=== PATIENT | male | born 1965 | race Caucasian/White ===

== ENCOUNTER 2019-03-27 13:14 | Emergency (ER) | payer BC ==
[~2019-03-27] VITALS: Ht 180.3 cm; Wt 97.5 kg
[~2019-03-27 13:14] MED LIST: ADULT LOW DOSE81 MG PO; ALLOPURINOL 10100 M1 PO; FLEXERIL PO; INDOMETHACIN 5050 MG PO; LEXAPRO 10 MG T10 M2 PO; LIPITOR10 MG PO; NITROGLYCERIN0.4 MG SUBLING; PERCOCET 5-3251 EACH PO; UNICOMPLEX M TA1 TA1 PO; XANAX 0.5 MG0.5 MG PO
[2019-03-27 13:53] LABS: URINE BILIRUBIN NEGATIVE (Negative); URINE BLOOD NEGATIVE (Negative); URINE CLARITY CLEAR; URINE COLOR YELLOW; URINE GLUCOSE-RANDOM NEGATIVE (Negative); URINE KETONES NEGATIVE (Negative); URINE LEUKOCYTES-REFLEX NEGATIVE (Negative); URINE NITRITE-REFLEX NEGATIVE (Negative); URINE PROTEIN NEGATIVE (Negative); URINE UROBILINOGEN 0.2 E.U./dl (0.2-1.0)
[2019-03-27] MEDS ORDERED: METOPROLOL TART25 MG PO (13:59)
[2019-03-27] MEDS ORDERED: LISINOPRIL-HCT1 EAC1 PO (13:59)
[2019-03-27 14:07] LABS: ABSOLUTE BASOPHILS 0.1 thou/uL (0.0-0.2); ABSOLUTE EOSINOPHILS 0.2 thou/uL (0.0-0.7); ABSOLUTE LYMPHOCYTES 1.7 thou/uL (0.8-5.3); ABSOLUTE MONOCYTES 0.6 thou/uL (0.0-1.2); ABSOLUTE NEUTROPHILS 8.5 thou/uL (1.6-8.1); BASOPHILS 0.9 %; EOSINOPHILS 2.1 %; HEMATOCRIT 38.3 % (42.0-52.0); HEMOGLOBIN 13.6 gm/dL (14.0-18.0); LYMPHOCYTES 15.5 %; MCH 32.7 pg (26.0-34.0); MCHC 35.4 g/dL (28.0-37.0); MCV 92.3 fL (80.0-100.0); MONOCYTES 5.4 %; NUCLEATED RBCS 0 /100WBC; PLATELET COUNT* 218 thou/uL (150-400); POLYS 76.1 %; RBC 4.15 mil/uL (4.50-6.00); RDW-CV 14.1 % (10.5-14.5); WBC 11.2 thou/uL (4.0-11.0)
[2019-03-27 14:16] LABS: CALCIUM 9.3 mg/dL (8.5-10.1); POTASSIUM 3.9 mmol/L (3.5-5.1)
[2019-03-27 14:18] LABS: METHADONE Negative (Negative)
[2019-03-27 14:19] LABS: SALICYLATE < 2.8 mg/dL (2.8-20.0)
[2019-03-27 14:20] LABS: ACETAMINOPHEN < 2 ug/mL (10-30)
[2019-03-27 14:20] LABS: AMP/METHAMP Negative (Negative); BARBITURATES Negative (Negative); BENZODIAZEPINES POSITIVE (Negative); COCAINE Negative (Negative); OPIATES Negative (Negative); PCP Negative (Negative); THC Negative (Negative)
[2019-03-27 14:21] LABS: ALBUMIN 4.4 g/dL (3.4-5.0); ALCOHOL < 10 mg/dL (<10); TOTAL BILIRUBIN 0.8 mg/dL (<0.1-1.0); TOTAL PROTEIN 8.7 g/dL (6.4-8.2)
[2019-03-27] MEDS ORDERED: ATIVAN1 M1 PO (17:41)
[2019-03-27 18:00] VITALS: BP 148/88
== END 2019-03-27 18:02 | disposition home or self-care (01) ==
LOC: M.ERS 13:14
PROVIDERS: Family Medicine
DX: F32.9 Major depressive disorder, single episode, unspecified (principal); F10.10 Alcohol abuse, uncomplicated; F41.9 Anxiety disorder, unspecified; I10 Essential (primary) hypertension; M10.9 Gout, unspecified; Z98.890 Other specified postprocedural states

== ENCOUNTER 2020-01-30 17:15 | Observation (INO) | payer OTHER ==
[~2020-01-30] VITALS: Ht 180.3 cm; Wt 62.8 kg
[~2020-01-30 17:15] MED LIST changes: +ATIVAN1 M1 PO; +LISINOPRIL-HCT1 EAC1 PO; +METOPROLOL TART25 MG PO
[2020-01-30] MEDS ORDERED: FENOFIBRATE150 MG PO (17:29)
[2020-01-30 18:03] LABS: ABSOLUTE BASOPHILS 0.1 thou/uL (0.0-0.2); ABSOLUTE EOSINOPHILS 0.3 thou/uL (0.0-0.7); ABSOLUTE MONOCYTES 0.4 thou/uL (0.0-1.2); ABSOLUTE NEUTROPHILS 4.6 thou/uL (1.6-8.1); BASOPHILS 0.9 %; EOSINOPHILS 3.7 %; HEMATOCRIT 36.5 % (42.0-52.0); HEMOGLOBIN 12.6 gm/dL (14.0-18.0); LYMPHOCYTES 27.1 %; MCH 32.7 pg (26.0-34.0); MCHC 34.5 g/dL (28.0-37.0); MCV 94.6 fL (80.0-100.0); NUCLEATED RBCS 0 /100WBC; PLATELET COUNT* 198 thou/uL (150-400); POLYS 62.3 %; RBC 3.86 mil/uL (4.50-6.00); RDW-CV 13.2 % (10.5-14.5); WBC 7.4 thou/uL (4.0-11.0)
[2020-01-30 18:15] LABS: CALCIUM 8.6 mg/dL (8.5-10.1); CREATININE 1.3 mg/dL (0.6-1.3); POTASSIUM 3.1 mmol/L (3.5-5.1)
[2020-01-30 18:18] LABS: APTT 24.5 Seconds (25.0-31.3); PROTIME 10.3 Seconds (9.20-11.50)
[2020-01-30 18:26] LABS: ALBUMIN 3.7 g/dL (3.4-5.0); MAGNESIUM 2.1 mg/dL (1.8-2.4); TOTAL BILIRUBIN 0.5 mg/dL (<0.1-1.0); TOTAL PROTEIN 7.2 g/dL (6.4-8.2)
--- NOTE | 2020-01-30 20:44 | NUR ---
REPORT CALLED TO NAM BYRD. WILL PREPARE TO TRANSPORT PT.
[2020-01-30 20:45] VITALS: BP 112/76
[2020-01-30 21:34] VITALS: BP 140/76
[2020-01-31 00:09] VITALS: BP 140/73
[2020-01-31 04:48] VITALS: BP 147/81
--- NOTE | 2020-01-31 05:10 | NUR ---
PT RECIEVED FORM ED IN 208. SAT MAINTAINED IN O2. ALERT AND ORIENTED X4. DENIES PAIN. CALL LIGHT WITHIN REACH AND BED IN LOW POSITION. HOURLY ROUNDING DONE FOR PT SAFETY.
[2020-01-31 08:00] VITALS: BP 131/76
--- NOTE | 2020-01-31 10:19 | EKG ---
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[place] [facility] [place] 1965 Requested By: David Barba Order Number: [id number] MD: Fernando Eisenberg Measurements Intervals [place] Rate: 78 P: 51 AR: 156 QRS: 25 QRSD: 99 T: 34 QT: 399 QTc: 455 Interpretive Statements Sinus rhythm Probable left atrial enlargement Borderline T abnormalities, anterior leads Artifact in lead(s) V1 and baseline wander in lead(s) V1,V3,V5 Compared to ECG 09/12/2018 11:59:33 no change Electronically Signed On 01-31-2020 10:19:42 IT SOLUTIONS ARCHITECT by Fernando Eisenberg [email or web address] <ELECTRONICALLY SIGNED> By: Fernando Eisenberg MD, FACC 01/31/20 1019 1725 1725 Fernando Eisenberg MD, FACC /EPI
[2020-01-31 11:41] VITALS: BP 138/79
--- NOTE | 2020-01-31 12:13 | CON ---
[facility] [address] [place] [address] CONSULTATION Name: KAYLILENI Kassy Room: [address] Liza Matta#: [id number] Admission: 01/30/20 Attend Phys: Marya Welsh Discharge: Date of : 67 Report #: [id number] THIS REPORT FOR: cc: Haroldo Chauhan Mohammad K. DO ~ Fernando Eisenberg MD [facility] DATE OF SERVICE: 01/31/2020 CARDIOLOGY CONSULTATION HISTORY OF PRESENT ILLNESS: The patient is a 54-year-old single white male who I was asked to see in the hospital today after he complained of chest pain. Unfortunately, the patient has never been admitted to [facility] before. There are no old records available. However, the patient states he has had chest pain for a long time. He actually underwent a cardiac catheterization in [facility] in the summer of 2018 for chest pain from the right radial artery. Apparently, there was no significant stenosis and no stents were placed. He has been treated medically since that time. He was doing well until 2 nights ago, he was at home, lying in bed when he felt a sharp pain in his chest, became diaphoretic. Took a nitroglycerin that seemed to help. Two nights ago, he also was lying in bed, felt a sharp pain in his chest, went into his back. He took a nitroglycerin to help. Yesterday, he decided to drive himself to [facility] and admitted for further evaluation and treatment. He has had no further chest pain since that time. He denied the pain being related to activity. He has had no trauma to his chest. He has had no rash. He denied it being related to food. He had no belching. He has had no bleeding recently. Denied fever or cough. He does get short of breath when he exerts himself, but he has had no edema. He notes occasional irregular heartbeat, but no syncope. PAST MEDICAL HISTORY: Otherwise, he has had previous lipoma removed from his leg. He has had elbow surgery, hypertension, and hyperlipidemia. MEDICATIONS: On admission included allopurinol, Lipitor, Lexapro, Xanax, metoprolol, fenofibrate. He previously was on lisinopril HCT. ALLERGIES: He has no known drug allergies. He does take an aspirin a day. FAMILY HISTORY: His father of heart attack. 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 He quit smoking in 2011. He has a history of alcohol abuse, previously went to detox. He continues to drink 4-6 drinks a day, usually beer. He has had no history of seizures, hepatitis, GI bleeding. He has passed out [address] [place] [address] CONSULTATION Name: LENI MILAN Room: [address] Liza Matta#: [id number] Admission: 01/30/20 Attend Phys: Marya Welsh Discharge: Date of : 67 Report #: [id number] from drinking in the past. REVIEW OF SYSTEMS: No history of stroke, asthma, liver disease, kidney disease or cancer. He has a history of anxiety. He follows a psychiatrist. No chronic skin condition. No cancer. PHYSICAL EXAMINATION: GENERAL: Revealed a middle-aged male, who appeared in no distress. VITAL SIGNS: He had a blood pressure 110/60, pulse is 70, he was afebrile. HEENT: He was anicteric. Conjunctivae are pink. Mucous membranes are moist. NECK: Veins nondistended. No carotid bruits. Neck supple. CHEST: Clear to auscultation. CARDIOVASCULAR: Regular rate without murmur. ABDOMEN: Soft. EXTREMITIES: Had no edema. Posterior tibial pulse 3+ bilaterally. SKIN: Cool and dry. NEUROLOGIC: Nonfocal. LYMPH: No adenopathy. MUSCULOSKELETAL: No joint effusion. RADIOLOGICAL DATA: ECG shows a sinus rhythm with nonspecific T-wave changes. His workup in the Emergency Room last night, he had a portable chest x-ray that showed normal heart size and clear lung nichols. LABORATORY DATA: Sodium 137, creatinine 1.3, glucose was 189. Lipase 221. Alkaline phosphatase 205. SGPT 168. His troponins all 0.06. His urine drug screen positive for benzodiazepines. White blood cell count 7.4, hemoglobin 12.6. IMPRESSION AND RECOMMENDATIONS: 1. Chest pain. No evidence of acute coronary syndrome. I think it is reasonable at this time to discharge the patient and have him follow up in [place] where he was catheterized a year and a half ago that showed no significant coronary artery disease. 2. Alcohol abuse. 3. Previous tobacco abuse. 4. Hypertension. The patient is on a beta artur. 5. Hyperlipidemia. The patient is on a statin drug. 6. History of anxiety disorder. The patient followed by Psychiatry. <ELECTRONICALLY SIGNED> By: Fernando Eisenberg MD, [facility] 01/31/20 1213 1036 1102Danika Eisenberg MD, FACC /nt
[2020-01-31 15:35] VITALS: BP 138/79
--- NOTE | 2020-01-31 18:16 | NUR ---
PT. AOX4, VSS, CALL LIGHT AND PERSONAL BELONGINGS PLACED WITHIN REACH, DENIES PAIN OR CHEST DISCOMFORT. OK WITH BLICK TO DC, SPOKE TO JOANA, PROVIDED WORK OFF LETTER TO PT. THIS NURSE ACCOMPANINED PT, WHO AMBULATED TO ER AND LEFT BY PERSONAL CAR, IN STABLE CONDITION.
== END 2020-01-31 16:30 | disposition home or self-care (01) ==
LOC: M.ERS 17:15 → M.2W 18:40 → M.TBA-ER 18:40 → M.2W 21:08
PROVIDERS: Emergency Medicine Emergency Medical Services; ADMIT Internal Medicine; ATTEND Internal Medicine
DX: R07.89 Other chest pain (principal); F41.9 Anxiety disorder, unspecified; F32.9 Major depressive disorder, single episode, unspecified; M10.9 Gout, unspecified; I10 Essential (primary) hypertension; F10.29 Alcohol dependence with unspecified alcohol-induced disorder; M94.0 Chondrocostal junction syndrome [Tietze]; J40 Bronchitis, not specified as acute or chronic; J43.9 Emphysema, unspecified; E78.5 Hyperlipidemia, unspecified; K76.0 Fatty (change of) liver, not elsewhere classified; Z87.891 Personal history of nicotine dependence; Z79.899 Other long term (current) drug therapy; Z20.828 Contact with and (suspected) exposure to other viral communicable diseases

== ENCOUNTER 2020-03-31 10:27 | Inpatient (IN) | payer OTHER ==
[2020-03-31] VITALS (8 sets, daily range): BP systolic 142–174; BP diastolic 83–94
[~2020-03-31] VITALS: Ht 180.3 cm; Wt 108.4 kg
[~2020-03-31 10:27] MED LIST changes: +FENOFIBRATE150 MG PO
[2020-03-31] MEDS ORDERED: METFORMIN HCL500 M3 PO (10:42)
[2020-03-31 10:52] LABS: ABSOLUTE BASOPHILS 0.1 thou/uL (0.0-0.2); ABSOLUTE LYMPHOCYTES 0.5 thou/uL (0.8-5.3); ABSOLUTE MONOCYTES 1.7 thou/uL (0.0-1.2); ABSOLUTE NEUTROPHILS 18.5 thou/uL (1.6-8.1); BASOPHILS 0.3 %; HEMATOCRIT 44.3 % (42.0-52.0); HEMOGLOBIN 14.6 gm/dL (14.0-18.0); LYMPHOCYTES 2.4 %; MCH 32.2 pg (26.0-34.0); MCV 97.6 fL (80.0-100.0); MONOCYTES 8.1 %; MPV 9.8 fl. (7.2-11.1); NUCLEATED RBCS 0 /100WBC; PLATELET COUNT* 271 thou/uL (150-400); POLYS 89.2 %; RBC 4.54 mil/uL (4.50-6.00); RDW-CV 13.2 % (10.5-14.5); WBC 20.8 thou/uL (4.0-11.0)
[2020-03-31 11:01] LABS: CALCIUM 9.5 mg/dL (8.5-10.1); CREATININE 2.5 mg/dL (0.6-1.3); POTASSIUM 4.4 mmol/L (3.5-5.1)
[2020-03-31 11:02] LABS: URINE BLOOD 3+ (Negative); URINE CLARITY CLEAR; URINE COLOR YELLOW; URINE GLUCOSE-RANDOM 2+ (Negative); URINE LEUKOCYTES NEGATIVE (Negative); URINE NITRITE NEGATIVE (Negative); URINE PROTEIN 2+ (Negative); URINE SPECIFIC GRAVITY 1.025 (1.005-1.030); URINE UROBILINOGEN 0.2 E.U./dl (0.2-1.0)
[2020-03-31 11:04] LABS: URINE BILIRUBIN 2+ (Negative); URINE KETONES 3+ (Negative)
[2020-03-31 11:05] LABS: ICTOTEST (BILI CONFIRMATORY) Negative (Negative)
[2020-03-31 11:09] LABS: ALBUMIN 2.9 g/dL (3.4-5.0); DIRECT BILIRUBIN 0.7 mg/dL (<0.1-0.3); MAGNESIUM 2.7 mg/dL (1.8-2.4); TOTAL BILIRUBIN 1.3 mg/dL (<0.1-1.0); TOTAL PROTEIN 7.6 g/dL (6.4-8.2)
[2020-03-31 11:15] LABS: BACTERIA 1-9 Few /HPF (None Seen); CASTS None Seen /LPF (None Seen); CRYSTALS None Seen /LPF (None Seen); MUCUS 0-3 Light strn/LPF (None Seen); SQUAMOUS 0-3 Few /LPF (0-3); URINE RBC 3-10 Few /HPF (0-2); URINE WBC 0-5 Rare /HPF (0-5)
[2020-03-31 11:20] LABS: BE -21.2 mmol/L (-2 to +3); PCO2 VENOUS 25.6 mmHg (41.0-51.0); PO2 VENOUS 45.1 mmHg (35.0-45.0)
[2020-03-31 12:45] LABS: ANISOCYTOSIS 1+; PLATELET ESTIMATE ADEQUATE; POIKILOCYTOSIS 1+
[2020-03-31 14:37] LABS: AMP/METHAMP Negative (Negative); BARBITURATES Negative (Negative); BENZODIAZEPINES Negative (Negative); COCAINE Negative (Negative); METHADONE Negative (Negative); OPIATES Negative (Negative); PCP Negative (Negative); THC Negative (Negative)
[2020-03-31 14:57] LABS: CALCIUM 8.9 mg/dL (8.5-10.1); CREATININE 2.3 mg/dL (0.6-1.3); POTASSIUM 4.2 mmol/L (3.5-5.1)
[2020-03-31 19:35] LABS: URINE BLOOD 3+ (Negative); URINE CLARITY CLEAR; URINE COLOR YELLOW; URINE GLUCOSE-RANDOM 3+ (Negative); URINE LEUKOCYTES NEGATIVE (Negative); URINE NITRITE NEGATIVE (Negative); URINE PROTEIN 2+ (Negative); URINE SPECIFIC GRAVITY 1.025 (1.005-1.030); URINE UROBILINOGEN 0.2 E.U./dl (0.2-1.0)
[2020-03-31 19:38] LABS: ICTOTEST (BILI CONFIRMATORY) Positive (Negative); URINE BILIRUBIN 2+ (Negative); URINE KETONES 3+ (Negative)
[2020-03-31 19:58] LABS: AMORPHOUS URATES Few /LPF (None Seen); BACTERIA 1-9 Few /HPF (None Seen); COARSE GRANULAR CASTS 4-10 Moderate /LPF (None Seen); SQUAMOUS 0-3 Few /LPF (0-3); URINE RBC 3-10 Few /HPF (0-2); URINE WBC 0-5 Rare /HPF (0-5)
[2020-03-31 20:47] LABS: ALBUMIN 2.3 g/dL (3.4-5.0); CALCIUM 8.5 mg/dL (8.5-10.1); CREATININE 2.1 mg/dL (0.6-1.3); MAGNESIUM 2.4 mg/dL (1.8-2.4); PHOSPHORUS* 2.5 mg/dL (2.5-4.9)
[2020-04-01] VITALS (16 sets, daily range): BP systolic 134–163; BP diastolic 70–89
[2020-04-01 00:37] LABS: ALBUMIN 2.3 g/dL (3.4-5.0); CALCIUM 8.3 mg/dL (8.5-10.1); CREATININE 2.2 mg/dL (0.6-1.3); MAGNESIUM 2.2 mg/dL (1.8-2.4); POTASSIUM 3.6 mmol/L (3.5-5.1)
[2020-04-01 04:27] LABS: HEMATOCRIT 33.6 % (42.0-52.0); MCH 31.8 pg (26.0-34.0); MCHC 33.6 g/dL (28.0-37.0); MCV 94.8 fL (80.0-100.0); MPV 9.3 fl. (7.2-11.1); RBC 3.55 mil/uL (4.50-6.00); RDW-CV 13.1 % (10.5-14.5); WBC 12.2 thou/uL (4.0-11.0)
[2020-04-01 04:59] LABS: BE -15.9 mmol/L (-2 to +3); PCO2 21.7 mmHg (35.0-45.0); PO2 72.1 mmHg (75.0-100.0)
[2020-04-01 05:01] LABS: ALBUMIN 2.1 g/dL (3.4-5.0); ALKALINE PHOSPHATASE 122 U/L (46-116); BUN 45 mg/dL (7-18); CALCIUM 8.4 mg/dL (8.5-10.1); CHLORIDE 99 mmol/L (98-107); CHOLESTEROL 154 mg/dL (<200); CREATININE 2.3 mg/dL (0.6-1.3); GLUCOSE 234 mg/dL (70-99); HDL CHOLESTEROL 8 mg/dL (>40); LIPASE 760 U/L (73-393); MAGNESIUM 2.1 mg/dL (1.8-2.4); PHOSPHORUS* 1.9 mg/dL (2.5-4.9); SGOT 58 U/L (15-37); SGPT 56 U/L (30-65); SODIUM 132 mmol/L (136-145); TC:HDL 19.3 Ratio (Not establshd); TOTAL BILIRUBIN 0.6 mg/dL (<0.1-1.0); TOTAL PROTEIN 6.4 g/dL (6.4-8.2); TRIGLYCERIDE 485 mg/dL (<150); VLDL 97 mg/dL (<40)
[2020-04-01 05:02] LABS: pH 7.251 (7.340-7.450)
[2020-04-01 05:06] LABS: ANION GAP 22 mmol/L (7-16); LDL CHOLESTEROL ND mg/dL (<100)
[2020-04-01 05:07] LABS: SERUM ASSESSMENT Clear
[2020-04-01 05:08] LABS: CO2 11 mmol/L (21-32)
[2020-04-01 05:10] LABS: HEMOGLOBIN 11.3 gm/dL (14.0-18.0)
--- NOTE | 2020-04-01 14:08 | EKG ---
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: [place] : 1965 Requested By: Elias Aguirre Order Number: [id number] MD: Tu Steen Measurements Intervals [place] Rate: 104 P: 81 OR: 152 QRS: 26 QRSD: 92 T: 60 QT: 381 QTc: 502 Interpretive Statements Sinus tachycardia Atrial premature complex Borderline repol abnrm, anterior leads Prolonged QT interval Baseline wander in lead(s) V2 Compared to ECG 01/30/2020 17:25:23 Atrial premature complex(es) now present Prolonged QT interval now present Sinus rate has increased T-wave abnormality no longer present Electronically Signed On 04-01-2020 14:08:41 MEMBER SERVICES COORDINATOR by Tu Steen [email or web address] <ELECTRONICALLY SIGNED> By: Tu Steen MD, [facility] 04/01/20 1408 1106 1106 Tu Steen MD, [facility] /EPI
[2020-04-01 15:14] LABS: CALCIUM 7.6 mg/dL (8.5-10.1); CREATININE 2.5 mg/dL (0.6-1.3); POTASSIUM 3.8 mmol/L (3.5-5.1)
[2020-04-02 00:56] VITALS: BP 160/78
[2020-04-02 02:06] LABS: GLYCOHEMOGLOBIN (HGB A1C) 9.9 % (4.8-5.6)
[2020-04-02 04:00] VITALS: BP 153/79
[2020-04-02 04:00] LABS: HEMATOCRIT 29.6 % (42.0-52.0); MCH 31.9 pg (26.0-34.0); MCHC 33.9 g/dL (28.0-37.0); MCV 94.2 fL (80.0-100.0); MPV 9.6 fl. (7.2-11.1); RBC 3.14 mil/uL (4.50-6.00); RDW-CV 13.4 % (10.5-14.5); WBC 8.2 thou/uL (4.0-11.0)
[2020-04-02 04:06] LABS: CALCIUM 7.8 mg/dL (8.5-10.1); CREATININE 2.7 mg/dL (0.6-1.3); POTASSIUM 3.2 mmol/L (3.5-5.1)
[2020-04-02 04:08] LABS: CALCIUM 8.6 mg/dL (8.5-10.1); CREATININE 2.7 mg/dL (0.6-1.3); MAGNESIUM 2.4 mg/dL (1.8-2.4); POTASSIUM 3.2 mmol/L (3.5-5.1)
[2020-04-02 08:09] VITALS: BP 162/85
[2020-04-02 12:00] VITALS: BP 154/75
[2020-04-02 13:12] LABS: ICTOTEST (BILI CONFIRMATORY) Negative (Negative); URINE BILIRUBIN 1+ (Negative); URINE BLOOD 1+ (Negative); URINE CLARITY CLEAR; URINE COLOR YELLOW; URINE GLUCOSE-RANDOM 3+ (Negative); URINE KETONES 1+ (Negative); URINE LEUKOCYTES NEGATIVE (Negative); URINE NITRITE NEGATIVE (Negative); URINE PROTEIN TRACE (Negative); URINE SPECIFIC GRAVITY <= 1.005 (1.005-1.030); URINE UROBILINOGEN 0.2 E.U./dl (0.2-1.0)
[2020-04-02 13:19] LABS: BACTERIA 1-9 Few /HPF (None Seen); CASTS None Seen /LPF (None Seen); CRYSTALS None Seen /LPF (None Seen); MUCUS None Seen strn/LPF (None Seen); SQUAMOUS 4-10 Moderate /LPF (0-3); URINE RBC 3-10 Few /HPF (0-2); URINE WBC 0-5 Rare /HPF (0-5)
[2020-04-02 16:00] VITALS: BP 151/82
[2020-04-02 20:00] VITALS: BP 158/79
[2020-04-03 00:32] LABS: URINE BLOOD 1+ (Negative); URINE CLARITY CLEAR; URINE COLOR YELLOW; URINE GLUCOSE-RANDOM 2+ (Negative); URINE KETONES 1+ (Negative); URINE LEUKOCYTES NEGATIVE (Negative); URINE NITRITE NEGATIVE (Negative); URINE PROTEIN 1+ (Negative); URINE UROBILINOGEN 0.2 E.U./dl (0.2-1.0)
[2020-04-03 00:39] LABS: ICTOTEST (BILI CONFIRMATORY) Negative (Negative); URINE BILIRUBIN 1+ (Negative)
[2020-04-03 00:48] LABS: BACTERIA None Seen /HPF (None Seen); CASTS None Seen /LPF (None Seen); CRYSTALS None Seen /LPF (None Seen); SQUAMOUS NONE SEEN /LPF (0-3); URINE RBC 0-2 Rare /HPF (0-2); URINE WBC None Seen /HPF (0-5)
[2020-04-03 00:58] VITALS: BP 163/85
[2020-04-03 05:20] LABS: ALBUMIN 1.8 g/dL (3.4-5.0); CALCIUM 7.8 mg/dL (8.5-10.1); CREATININE 2.2 mg/dL (0.6-1.3); MAGNESIUM 2.2 mg/dL (1.8-2.4); TOTAL BILIRUBIN 0.5 mg/dL (<0.1-1.0); TOTAL PROTEIN 5.5 g/dL (6.4-8.2)
[2020-04-03 05:26] LABS: POTASSIUM 2.7 mmol/L (3.5-5.1)
[2020-04-03 09:32] VITALS: BP 167/97
[2020-04-03 09:59] LABS: CALCIUM 7.6 mg/dL (8.5-10.1); CREATININE 2.2 mg/dL (0.6-1.3); POTASSIUM 3.5 mmol/L (3.5-5.1)
[2020-04-03 16:00] VITALS: BP 135/79
[2020-04-03 19:54] VITALS: BP 156/96
[2020-04-03 23:30] VITALS: BP 167/90
[2020-04-04 04:33] VITALS: BP 161/91
[2020-04-04 05:10] LABS: CREATININE 1.9 mg/dL (0.6-1.3); MAGNESIUM 2.2 mg/dL (1.8-2.4)
[2020-04-04 05:25] LABS: POTASSIUM 2.8 mmol/L (3.5-5.1)
[2020-04-04] MEDS ORDERED: KLOR-CON M2020 MEQ PO (08:37)
[2020-04-04] MEDS ORDERED: NOVOLOG FL100 UNIT/M SUBQ (09:11)
[2020-04-04] MEDS ORDERED: LANTUS SOL100 UNIT/1 SUBQ (09:11)
[2020-04-04 16:24] LABS: CALCIUM 8.2 mg/dL (8.5-10.1); CREATININE 1.7 mg/dL (0.6-1.3); POTASSIUM 3.3 mmol/L (3.5-5.1)
[2020-04-04 17:10] VITALS: BP 161/91
--- NOTE | 2020-04-05 16:05 | CON ---
[address] [address] CONSULTATION Name: LENI MILAN Room: [address] M.R.#: [id number] Admission: 03/31/20 Attend Phys: Staci Schaefer MD Discharge: 04/04/20 Date of : 67 Report #: [id number] THIS REPORT FOR: cc: Haroldo Chauhan Mohammad K. DO ~ Karyna Painter MD DATE OF SERVICE: 04/01/2020 NEPHROLOGY CONSULTATION CONSULTING PHYSICIAN: Staci Schaefer MD. REASON FOR NEPHROLOGY CONSULTATION: Metabolic acidosis in the setting of DKA and acute kidney injury. REASON FOR ADMISSION: Intractable nausea, vomiting, abdominal pain. HISTORY OF PRESENT ILLNESS: The patient is a 54-year-old male who has history of alcohol dependence, but quit drinking alcohol about a week ago, was drinking heavily before that, mainly whiskey, came in with abdominal pain, intractable nausea, vomiting and shortness of air. The patient stated that he was diagnosed with diabetes just a week ago, started on oral Glucophage along with another medication, which he could not recall. He also quit drinking about a week ago. Yesterday, when he came in, he was having severe nausea, had been having vomiting and abdominal CT scan without contrast showed acute pancreatitis, without evidence of pseudocyst. He was also found to be in DKA, started on DKA protocol. His metabolic acidosis is slowly improving. His nausea is better, but he just feels very tired. He states he does not take any NSAIDs at home. His creatinine was 1.3 back in 01/2020 and was 2.5 when he came in, but it is coming down to 2.3 now. He has been hemodynamically stable. He did have an elevated white count, which is getting better. ALLERGIES: No known drug allergies. REVIEW OF SYSTEMS: As mentioned in the history of present illness, otherwise 10-point review of systems is negative. HOME MEDICATIONS: Include aspirin, nitroglycerin, allopurinol, atorvastatin, Lexapro, alprazolam, metoprolol, fenofibrate, metformin. PAST MEDICAL AND SURGICAL HISTORY: Includes umbilical hernia repair, elbow surgery, right, gout, hypertension, anxiety, left knee surgery, [place] [address] CONSULTATION Name: LENI MILAN Room: [address]#: [id number] Admission: 03/31/20 Attend Phys: Staci Schaefer MD Discharge: 04/04/20 Date of : 67 Report #: [id number] SOCIAL HISTORY: He was drinking heavily, but quit drinking a week ago and a former smoker, does not use recreational drugs. Does work, could not tell me what kind of work he does. FAMILY HISTORY: Reviewed and noncontributory, did not complain of having any kidney problems in the family. PHYSICAL EXAMINATION: VITAL SIGNS: Blood pressure is 155/89, temperature was 36.3, respiratory rate is 35, pulse rate is 91, pulse ox is 95% on room air. GENERAL: The patient is awake, alert, oriented x3. HEAD AND EYES: Atraumatic and normocephalic. Conjunctivae normal. EARS, NOSE, AND THROAT: Normal ears and nose, and mucous membranes are moist. NECK: No JVD. CHEST: Diminished breath sounds anteriorly. No crackles or wheezing. ABDOMEN: Distended, soft. Epigastric tenderness. Bowel sounds are decreased. LOWER EXTREMITIES: There is no lower extremity edema. NEUROLOGIC: Grossly intact. PSYCHIATRIC: Mood and affect seems to be normal. LABORATORY DATA: WBC 12.2, hemoglobin 11.3. Sodium is 132, potassium is 4.0, creatinine was 2.3, bicarbonate was 11. PH 7.25, pCO2 of 22. Lipase was 2700, down to 760. Other labs are reviewed. IMAGING: Chest x-ray, renal ultrasound, abdominal and pelvic CT scan were reviewed. ASSESSMENT: 1. Acute kidney injury in the setting of diabetic ketoacidosis, volume depletion, nausea and vomiting, acute pancreatitis, creatinine was 1.3 back in January of last year and he comes in with a creatinine of 2.5, so far improving with IV fluids. Renal ultrasound was unremarkable. UA reviewed, has evidence of ketones, 2+ protein, 3+ blood with 2-10 rbc's per high power field with granular cast, indicating there could be an element of acute tubular necrosis in addition to volume depletion. UA should be rechecked once his kidney injury gets better further. 2. Diabetic ketoacidosis, getting better from that standpoint, being taken off of insulin protocol. 3. High anion gap metabolic acidosis in the setting of likely alcoholic ketoacidosis and he did have diabetic ketoacidosis, would recommend checking lactic acidosis because he was recently started on metformin. 4. Gout. We will defer to primary team for management. 5. Hypertension. We will defer to primary team for management. 6. Anxiety. [address] [address] CONSULTATION Name: LENI MILAN Room: [address] [place] .[place].#: [id number] Admission: 03/31/20 Attend Phys: Staci Schaefer MD Discharge: 04/04/20 Date of : 67 Report #: [id number] 7. Acute pancreatitis, likely alcohol related. We will defer to primary team for management of that. 8. Alcohol dependence, concern for alcohol withdrawal setting, the patient is on CIWA protocol. PLAN: 1. Agree with bicarbonate drip, D5 water with 3 amps of bicarbonate. It has been ordered at 80 mL an hour. 2. Recommend checking a lactic level because of recent metformin intake. 3. Check morning labs and avoid nephrotoxic agents. Try to keep MAP 65-70. 4. Treatment of pancreatitis as per primary team. Thank you for this consultation. We will continue to follow with you. Discussed with the patient and the patient's nurse in detail. <ELECTRONICALLY SIGNED> By: Karyna Painter MD 04/05/20 1605 0850 [id number] Painter MD /nt
== END 2020-04-04 17:41 | disposition home or self-care (01) | DRG 871 ==
LOC: M.ERS 10:27 → M.2W 11:54 → M.TBA-ER 11:54 → M.ICU 15:37 → M.2W 04-01 14:15
PROVIDERS: Emergency Medicine; Internal Medicine; Internal Medicine Nephrology; ADMIT Internal Medicine; ATTEND Internal Medicine
DX: A41.9 Sepsis, unspecified organism (principal); E11.10 Type 2 diabetes mellitus with ketoacidosis without coma; K85.20 Alcohol induced acute pancreatitis without necrosis or infection; N17.0 Acute kidney failure with tubular necrosis; F10.239 Alcohol dependence with withdrawal, unspecified; M10.9 Gout, unspecified; I10 Essential (primary) hypertension; F41.9 Anxiety disorder, unspecified; E86.0 Dehydration; Y90.9 Presence of alcohol in blood, level not specified; E87.6 Hypokalemia; Z20.822 Contact with and (suspected) exposure to COVID-19; Z79.899 Other long term (current) drug therapy; Z79.82 Long term (current) use of aspirin; Z79.84 Long term (current) use of oral hypoglycemic drugs

== ENCOUNTER 2020-11-12 20:01 | Emergency (ER) | payer OTHER ==
[~2020-11-12] VITALS: Ht 180.3 cm; Wt 97.5 kg
[~2020-11-12 20:01] MED LIST changes: +KLOR-CON M2020 MEQ PO; +LANTUS SOL100 UNIT/1 SUBQ; +METFORMIN HCL500 M3 PO; +NOVOLOG FL100 UNIT/M SUBQ
[2020-11-12] MEDS ORDERED: ZOLOFT50 M1 PO (20:24)
[2020-11-12 20:29] LABS: ABSOLUTE BASOPHILS 0.1 thou/uL (0.0-0.2); ABSOLUTE EOSINOPHILS 0.2 thou/uL (0.0-0.7); ABSOLUTE LYMPHOCYTES 1.4 thou/uL (0.8-5.3); ABSOLUTE MONOCYTES 0.5 thou/uL (0.0-1.2); ABSOLUTE NEUTROPHILS 6.2 thou/uL (1.6-8.1); BASOPHILS 0.8 %; HEMATOCRIT 41.1 % (42.0-52.0); HEMOGLOBIN 14.5 gm/dL (14.0-18.0); LYMPHOCYTES 16.4 %; MCH 34.1 pg (26.0-34.0); MCHC 35.2 g/dL (28.0-37.0); MCV 96.7 fL (80.0-100.0); MPV 8.9 fl. (7.2-11.1); NUCLEATED RBCS 0 /100WBC; PLATELET COUNT* 217 thou/uL (150-400); POLYS 74.8 %; RBC 4.25 mil/uL (4.50-6.00); RDW-CV 14.5 % (10.5-14.5); WBC 8.3 thou/uL (4.0-11.0)
[2020-11-12 20:47] LABS: CALCIUM 9.1 mg/dL (8.5-10.1); CREATININE 0.9 mg/dL (0.6-1.3); POTASSIUM 3.3 mmol/L (3.5-5.1)
[2020-11-12 20:51] LABS: ALBUMIN 3.5 g/dL (3.4-5.0); TOTAL BILIRUBIN 1.1 mg/dL (<0.1-1.0); TOTAL PROTEIN 7.1 g/dL (6.4-8.2)
[2020-11-12 21:09] VITALS: BP 140/87
--- NOTE | 2020-11-13 09:41 | EKG ---
[place] [address] ELECTROCARDIOGRAM REPORT Name: LENI MILAN Room: [facility]#: [id number] Admission: 11/12/20 Attend Phys: Discharge: 11/12/20 Date of : 67 Date of Service: 11/12/202010 Report #: [id number] THIS REPORT FOR: //name// [facility] ED Test Date: 2020-11-12 Test Time: 20:11:46 Pat Name: LENI MILAN Department: Room: Gender: Radio Dispatcher: [place] : 1965 Requested By: Richmond Villarreal Order Number: [id number] MD: Tu Steen Measurements Intervals [place] Rate: 71 P: 43 AL: 145 QRS: 14 QRSD: 86 T: -4 QT: 386 QTc: 420 Interpretive Statements Sinus rhythm Possible anteroseptal infarct, old Minimal ST depression, anterolateral leads Compared to ECG 03/31/2020 11:06:40 Myocardial infarct finding now present ST (T wave) deviation now present Sinus tachycardia no longer present Atrial premature complex(es) no longer present Prolonged QT interval no longer present Electronically Signed On 11-13-2020 9:41:00 CDT by Tu Steen [email or web address] <ELECTRONICALLY SIGNED> By: Tu Steen MD, [facility] 11/13/2041 10 10 Tu Steen MD, [facility] /EPI
== END 2020-11-12 21:09 | disposition home or self-care (01) ==
LOC: M.ERS 20:01
PROVIDERS: Physician Assistant
DX: R07.89 Other chest pain (principal); R94.5 Abnormal results of liver function studies; R42 Dizziness and giddiness; R06.02 Shortness of breath; I10 Essential (primary) hypertension; F41.9 Anxiety disorder, unspecified; E11.9 Type 2 diabetes mellitus without complications; Z98.890 Other specified postprocedural states; Z79.82 Long term (current) use of aspirin; Z79.4 Long term (current) use of insulin; Z79.899 Other long term (current) drug therapy